=== PATIENT | female | born 1975 | race American Indian/Alaskan Native ===

== ENCOUNTER 2016-12-22 20:48 | Emergency (ER) | payer MEDICAID ==
[2016-12-22 21:28] LABS: Basophils % (Auto) 0.4 % (0.0-1.8); Eosinophils % (Auto) 1.8 % (0.0-4.3); Hematocrit 34.8 % (30.3-42.9); Hemoglobin 11.2 gm/dl (10.1-14.3); Mean Corpuscular HGB Conc 32 % (30-34); Mean Corpuscular Hemoglobin 29 pg (28-32); Mean Corpuscular Volume 90 fl (79-97); Platelet Count 252 K/mm3 (140-440); Red Blood Count 3.88 M/mm3 (3.65-5.03); Red Cell Distribution Width 16.9 % (13.2-15.2); White Blood Count 9.1 K/mm3 (4.5-11.0)
[2016-12-22 21:40] LABS: Anion Gap 19 mmol/L; BUN/Creatinine Ratio 13.33; Blood Urea Nitrogen 8 mg/dL (7-17); Calcium 8.7 mg/dL (8.4-10.2); Carbon Dioxide 23 mmol/L (22-30); Chloride 100.4 mmol/L (98-107); Glucose 97 mg/dL (65-100); Potassium 4.1 mmol/L (3.6-5.0); Sodium 138 mmol/L (137-145)
[2016-12-22 22:02] LABS: Bilirubin,Urine NEG (Negative); Blood,Urine NEG (Negative); Ketones,Urine NEG (Negative); Leukocyte Esterase,Urine NEG (Negative); Mucus,Urine FEW /HPF; Nitrite,Urine NEG (Negative); Urobilinogen,Urine < 2.0 mg/dL (<2.0)
[2016-12-23] MEDS ORDERED: NORMODYNE IV ONE (00:40)
[2016-12-23] MEDS ORDERED: BENADRYL IV ONE (00:42)
[2016-12-23] MEDS ORDERED: TORADOL IV ONE (00:42)
[2016-12-23] MEDS ORDERED: REGLAN IV ONE (00:42)
--- NOTE | 2016-12-23 02:14 | Emergency Department Report ---
HPI - General Chief Complaint: Chest Pain Time Seen by Provider: 12/22/16 23:17 - HPI HPI: The patient is a 41-year-old female who presents for evaluation of headache, chest pain, and elevated blood pressure. The patient reports 3 days of bilateral bandlike generalized headache, aching in quality, currently 8/10 in severity, exacerbated with elevated blood pressure. She has also experienced on and off mild and aching bilateral chest pain, Exacerbated with movement of the upper body and proximal arms. The patient denies fever, head injury, neck pain, neck stiffness, trauma to the chest, dyspnea, hemoptysis, unilateral leg swelling, vision or hearing changes, smell or taste changes, paresthesias, facial drooping, slurred speech, seizure-like activity, urine or bowel incontinence or retention, or other focal neurological deficit. The patient also denies history of DVT or PE, recent cancer, recent immobilization, or recent surgery ED Past Medical Hx - Past Medical History Previous Medical History?: Yes Hx Hypertension: No Hx Psychiatric Treatment: Yes (anxiety) Hx Asthma: Yes (used inhaler 3 weeks ago) Additional medical history: Umbilical Hernia - Surgical History Past Surgical History?: Yes Additional Surgical History: Tubal Ligation; hernia 2016 - Social History Smoking Status: Never Smoker Substance Use Type: Alcohol - Medications Home Medications: Home Medications Medication Instructions Recorded Confirmed Last Taken Type ALPRAZolam [Xanax] 0.5 mg PO DAILY 09/01/13 05/24/15 05/23/15 History 0.5 MG Dicyclomine [Bentyl] 20 mg PO QID #20 tablet 05/20/15 05/24/15 05/23/15 Rx 20 MG Promethazine [Phenergan TAB] 25 mg PO Q6HR PRN #10 tab 05/20/15 05/24/15 Rx 25 MG traMADol [Ultram 50 MG tab] 50 mg PO Q6HR PRN #20 tablet 05/20/15 05/24/1505/23 Rx 50 MG HYDROcodone/APAP 5-325 [[place] 1 each PO Q4HR PRN #30 tablet 05/26/15 Unknown Rx 5/325] ALBUTEROL Inhaler [ProAir HFA 1 puff INHALATION BID PRN #1 inha 05/04/16 Unknown Rx Inhaler] Amoxicillin/K Clav Tab [Augmentin 1 tab PO Q12HR #20 tab 05/04/16 Unknown Rx 875 mg] predniSONE [Deltasone] 50 mg PO QAM #5 tablet 05/04/16 Unknown Rx Acetaminophen/Codeine [Tylenol #3] 1 tab PO Q6H PRN #12 tab 12/23/16 Unknown Rx Hydrochlorothiazide [HCTZ] 25 mg PO QDAY #30 tablet 12/23/16 Unknown Rx ED Review of Systems ROS: Stated complaint: HBP Other details as noted in HPI Constitutional: denies: fever ENT: denies: throat or neck pain Respiratory: denies: cough, shortness of breath Cardiovascular: reports chest pain Endocrine: denies unexplained weight loss or gain Gastrointestinal: denies: abdominal pain, nausea Genitourinary: denies: dysuria Musculoskeletal: denies: leg swelling Skin: denies: rash Neurological: reports headache Hematological/Lymphatic: denies: easy bleeding or easy bruising Psych: denies sadness or hopelessness Physical Exam - Physical Exam Vital Signs: Vital Signs 12/22/16 12/23/16 12/23/16 20:52 00:05 00:10 Temperature 98.0 F Pulse Rate 87 83 Respiratory 20 13 Rate Blood Pressure 147/105 171/107 171/107 Blood Pressure [Left] O2 Sat by Pulse 99 98 99 Oximetry 12/23/16 12/23/16 12/23/16 00:14 00:20 00:30 Temperature Pulse Rate 88 93 H 87 Respiratory 17 16 12 Rate Blood Pressure 168/102 168/102 Blood Pressure 171/107 [Left] O2 Sat by Pulse 97 98 97 Oximetry 12/23/16 12/23/16 12/23/16 00:49 00:50 01:00 Temperature Pulse Rate 93 H 91 H 75 Respiratory 10 L 11 L 10 L Rate Blood Pressure 169/114 Blood Pressure [Left] O2 Sat by Pulse 95 97 96 Oximetry 12/23/16 12/23/16 12/23/16 01:08 01:10 01:20 Temperature Pulse Rate 91 H 86 86 Respiratory 18 14 Rate Blood Pressure 167/107 168/111 130/89 Blood Pressure [Left] O2 Sat by Pulse 94 95 Oximetry 12/23/16 12/23/16 12/23/16 01:30 01:40 01:50 Temperature Pulse Rate 85 81 82 Respiratory 17 18 19 Rate Blood Pressure 145/95 130/89 137/80 Blood Pressure [Left] O2 Sat by Pulse 95 96 94 Oximetry Physical Exam: General: well-nourished, well-developed, no acute distress Head: Normocephalic, atraumatic Eyes: normal sclera, PERRL, EOM intact ENT: Mucous membranes are pink and moist Neck: trachea midline, neck supple, No neck stiffness, no cervical adenopathy Respiratory: Breath sounds equal bilaterally, no wheezing, rales, or rhonchi Cardio: S1 and S2 present, no murmurs, rubs, gallops, capillary refill is brisk Abdomen: Normoactive bowel sounds, soft abdomen, no rigidity, no guarding or rebound tenderness Musc: No pitting edema Skin: No rash Neuro: alert oriented x4, normal cognition, speech normal, no facial drooping, no uvula or tongue deviation on protrusion, no deficit with rotation of neck or shoulder shrug, no obvious gross motor deficit in the upper or lower extremities with flexion or extension at the shoulder, elbow, wrist, hip, knee, or ankle bilaterally, no obvious gross sensation deficit, 2+ symmetric reflexes on DTR testing, no dysmetria, dysdiadochokinesia, no coordination deficit with [id number]-[id number] or [id number] testing, romberg negative, patient able to to ambulate without abnormal gait Psych: Normal affect ED Course Vital Signs 12/22/16 12/23/16 12/23/16 20:52 00:05 00:10 Temperature 98.0 F Pulse Rate 87 83 Respiratory 20 13 Rate Blood Pressure 147/105 171/107 171/107 Blood Pressure [Left] O2 Sat by Pulse 99 98 99 Oximetry 12/23/16 12/23/16 12/23/16 00:14 00:20 00:30 Temperature Pulse Rate 88 93 H 87 Respiratory 17 16 12 Rate Blood Pressure 168/102 168/102 Blood Pressure 171/107 [Left] O2 Sat by Pulse 97 98 97 Oximetry 12/23/16 12/23/16 12/23/16 00:49 00:50 01:00 Temperature Pulse Rate 93 H 91 H 75 Respiratory 10 L 11 L 10 L Rate Blood Pressure 169/114 Blood Pressure [Left] O2 Sat by Pulse 95 97 96 Oximetry 12/23/16 12/23/16 12/23/16 01:08 01:10 01:20 Temperature Pulse Rate 91 H 86 86 Respiratory 18 14 Rate Blood Pressure 167/107 168/111 130/89 Blood Pressure [Left] O2 Sat by Pulse 94 95 Oximetry 12/23/16 12/23/16 12/23/16 01:30 01:40 01:50 Temperature Pulse Rate 85 81 82 Respiratory 17 18 19 Rate Blood Pressure 145/95 130/89 137/80 Blood Pressure [Left] O2 Sat by Pulse 95 96 94 Oximetry ED Medical Decision Making - Lab Data Result diagrams: 12/22/16 21:08 12/22/16 21:08 - Medical Decision Making The patient was seen and examined by myself. The patient is placed on a metal plater and continuous pulse ox. On initial evaluation, the patient was found to be in no distress. EKG was negative for findings suggestive of acute cardiac infarct. As there are no neuro deficits or other findings on examination concerning for acute intracranial disease process, and as the patient states that symptoms are consistent with previous headaches, a CAT scan of the head will not be obtained at this time. IV access is established and the patient is given IV Reglan, Benadryl, and IV Toradol for headache, and IV labetalol for elevated blood pressure. Labs and chest imaging are obtained. Chest x-ray is negative for pneumothorax, focal consolidation, pulmonary vascular congestion, pleural effusion, or other obvious acute cardiopulmonary disease process. Lab results were non-concerning including levels of troponin, WBC, hemoglobin, hematocrit, electrolytes, renal function. The patient was reevaluated and reported that their symptoms were markedly improved. As the patient has a VICKY risk score less than 2, and a well's score less than 2, the patient is at low risk of ACS or pulmonary emboli etiology of their symptoms. The patient is stable for discharge with outpatient follow-up. The patient is given follow-up and return instructions. The patient expressed understanding and agreed with the plan. The patient is discharged in stable condition. Critical care attestation.: If time is entered above; I have spent that time in minutes in the direct care of this critically ill patient, excluding procedure time. ED Disposition Clinical Impression: Hypertensive urgency, Acute non intractable tension-type headache, Acute chest pain Disposition: DISCHARGED TO HOME OR SELFCARE Is pt being admited?: No Does the pt Need Aspirin: No Condition: Stable Instructions: Chest Pain (ED), Hypertension (ED), Acute Headache (ED) Prescriptions: Acetaminophen/Codeine [Tylenol #3] 1 tab PO Q6H PRN #12 tab PRN Reason: Pain Hydrochlorothiazide [HCTZ] 25 mg PO QDAY #30 tablet Referrals: PRIMARY CARE, [Primary Care Provider] - 3-5 Days Time of Disposition: 01:10
[2016-12-23 02:41] VITALS: BP 125/77
--- NOTE | 2016-12-23 10:15 | XRay Report ---
AP CHEST: HISTORY: chest pain AP view of the chest demonstrates a normal mediastinal and cardiac contour with clear lungs and normal bony and soft tissue structures. IMPRESSION: Unremarkable AP chest.
== END 2016-12-23 02:47 | disposition home or self-care (01) ==
LOC: ED 20:48
DX: I10 Essential (primary) hypertension (principal); G44.209 Tension-type headache, unspecified, not intractable; R07.9 Chest pain, unspecified; J45.909 Unspecified asthma, uncomplicated
CPT/HCPCS: 36415; 71010; 80048; 81001; 81025; 84484; 85025; 93005; 93010; 96374; 96375; 99285; J1200; J1885; J2765

== ENCOUNTER 2017-06-28 13:59 | Outpatient (CLI) | payer MEDICAID ==
--- NOTE | 2017-06-29 07:15 | Vascular Lab Report ---
Left Lower Extremity Venous Duplex Study: Reason for Exam: Pain of the left lower extremity. Comments on the Right: A limited duplex study was done of the proximal veins of the right lower extremity. All veins visualized are freely compressible without evidence of internal echogenicity. Flow is spontaneous and phasic throughout. No evidence of acute or chronic thrombus is seen in any of the vessels visualized. Comments on the Left: All veins visualized are freely compressible without evidence of internal echogenicity. Flow is spontaneous and phasic throughout. No evidence of acute or chronic thrombus is seen in any of the vessels visualized. Impression: No evidence of acute or chronic deep venous thrombosis in the left lower extremity.
== END 2017-06-28 14:00 | disposition home or self-care (01) ==
LOC: VAS 13:59
PROVIDERS: ATTEND Family Medicine
DX: M79.605 Pain in left leg (principal)